=== PATIENT | female | born 1975 | race Caucasian/White ===

== ENCOUNTER → 2020-01-24 | Outpatient (CLI) | payer BC, OTHER ==
[~2020-01-24] MED LIST: CODE-54 PO; CYAN500T44 PO; D50KC PO; DCS100C PO; ESTR1TAB35 PO; FURO20TA4 PO; Ketorolac Tromethamine IV; LIPA1CAP4 PO; ONDN4T PO; POTA10TA PO; PRD20T PO; SERT50TA PO; TRAM50TA2 PO; TRM50T PO
== END ==
LOC: CARD 08:55
DX: M79.89 Other specified soft tissue disorders (principal)
CPT/HCPCS: 93306